=== PATIENT | male | born 1955 | race Caucasian/White ===

== ENCOUNTER 2017-07-31 09:49 | Outpatient (CLI) | payer OTHER ==
[2017-07-31 11:16] LABS: eGFR (African) > 60; eGFR (Non-African) > 60
== END 2017-07-31 09:50 ==
LOC: LAB 09:49
PROVIDERS: ATTEND Family Medicine
DX: E78.00 Pure hypercholesterolemia, unspecified (principal); I10 Essential (primary) hypertension; Z12.5 Encounter for screening for malignant neoplasm of prostate; R73.9 Hyperglycemia, unspecified
CPT/HCPCS: 36415; 80053; 80061; 83036; 84153

== ENCOUNTER 2018-08-02 09:33 | Outpatient (CLI) | payer OTHER ==
[2018-08-02 11:32] LABS: eGFR (Non-African) > 60
== END 2018-08-02 09:34 ==
LOC: LAB 09:33
PROVIDERS: ATTEND Family Medicine
DX: Z12.5 Encounter for screening for malignant neoplasm of prostate (principal); I10 Essential (primary) hypertension; E78.00 Pure hypercholesterolemia, unspecified
CPT/HCPCS: 80053; 80061; 84153

== ENCOUNTER 2019-07-25 11:17 | Outpatient (CLI) | payer OTHER ==
--- NOTE | 2019-07-25 15:11 | Diagnostic Imaging Report ---
DAMIR COLVIN [facility] [id number] [address] [id number] Report Submission Date: Jul 25, 2019 1:56:10 PM CDT Patient Study Name: LOREN OSULLIVAN Date: Jul 25, 2019 11:15:18 AM CDT Modality Type: DX Gender: M Description: CHEST 2VIEW : 51 Institution: [facility] Physician: DAMIR COLVIN CHEST 2 VIEWS CLINICAL INDICATION: HEMOPTYSIS (Hx) / Note time : 07/25/2019 1:48:46 PM User : Veronica Martinez HEMOPTYSIS (DICOM Hx) (DICOM Hx) FINDINGS: Two views of the chest were obtained. low on volumes are present bilaterally with hypoventilatory changes and mild elevation of the right hemidiaphragm. No confluent infiltrate, consolidation, or effusion is present. The heart and mediastinal silhouettes are normal. IMPRESSION: low lung volumes. Electronically signed on Jul 25, 2019 1:56:10 PM CDT by: Jung RCAMER
== END 2019-07-25 11:19 ==
LOC: RAD 11:17
PROVIDERS: ATTEND Family Medicine
DX: R04.2 Hemoptysis (principal)
CPT/HCPCS: 71046

== ENCOUNTER 2019-10-10 09:01 | Outpatient (CLI) | payer OTHER ==
[2019-10-10 10:19] LABS: eGFR (Non-African) > 60
[2019-10-10 10:20] LABS: HDL 53 mg/dL (>40)
[2019-10-10 13:36] LABS: A1C 5.3 % (<5.7)
== END 2019-10-10 09:06 ==
LOC: LAB 09:01
PROVIDERS: ATTEND Family Medicine
DX: Z12.5 Encounter for screening for malignant neoplasm of prostate (principal); I10 Essential (primary) hypertension; R73.9 Hyperglycemia, unspecified
CPT/HCPCS: 80053; 80061; 83036

== ENCOUNTER 2019-10-17 17:07 | Outpatient (CLI) | payer OTHER | END 2019-10-17 17:12 | LOC: LABRHC 17:07 | PROVIDERS: ATTEND Family Medicine | DX: Z12.5 Encounter for screening for malignant neoplasm of prostate (principal) | CPT/HCPCS: 84153 ==